=== PATIENT | female | born 1960 | race Caucasian/White ===

== ENCOUNTER → 2020-12-04 | Outpatient (CLI) | payer BC, OTHER ==
--- NOTE | 2020-12-04 09:37 | RAD ---
Thyroid ultrasound without comparison for thyroid nodule. TECHNIQUE AND FINDINGS: Real-time grayscale and color Doppler evaluation of the thyroid gland is perf ormed. Gland is heterogeneous in echotexture diffusely. The right lobe measures 5.6 x 1.4 x 1.4 cm in the left measures 5.1 x 1.8 x 1.7 cm. The isthmus is normal in thickness. There are multiple thyroid nodules bilaterally. On the right, there is a solid smoothly marginated heterogeneous but predominan tly isoechoic wider than tall nodule with punctate echogenic foci measuring 0.9 x 0.7 x 0.5 cm in the anterior inferior pole. This would constitute a TR 4 lesion. Deep within or extrinsic to the mid sub stance of the right thyroid lobe there is a 0.9 centimeter densely hypoechoic solid mass with lobulat ed margins and no internal echogenic foci. This may represent a TR 4 thyroid nodule, but also may be extrinsic to the thyroid gland itself, and could represent parathyroid pathology. On the left, there is a dominant cystic and solid nodule measuring 2.7 x 2.2 x 2.6 cm, with smooth margins, isoechoic ch aracter and wider than tall profile. No echogenic foci. This is a TR 2 lesion. Also on the left is 1. 1 x 0.6 x 0.9 cm solid hypoechoic nodule anterior to the dominant cystic and solid nodule. This nodul e is wider than tall and has smooth margins, with some peripheral rim calcifications. This is a TR 4 nodule that should be followed up according to guidelines as listed below. IMPRESSION: 1. Multinodular thyroid as described. Of particular concern is a 9 mm lobulated densely hypoechoic no dule on the right which is difficult to characterize as within or extrinsic to the thyroid gland. Thi s could reflect TR for thyroid nodule or parathyroid pathology. FNA is recommended despite its small size. ACR TI-RADS 2017 Composition - cystic or completely cystic: Benign, no further score - spongiform: Benign, no further score - mixed cystic and Solid: 1 point - solid or almost completely solid: 2 points Echogenicity - anechoic: 0 points - hyper- or isoechoic: 1 point - hypoechoic: 2 points - very hypoechoic: 3 points Shape (assess on transverse plane) - wider than tall: 0 points - taller than wide: 3 points Margin - smooth: 0 points - ill-defined: 0 points - lobulated/irregular: 2 points - extra-thyroidal extension: 3 points Echogenic Foci - none: 0 points - large comet tail artifact: 1 point - peripheral/rim calcifications: 2 points - punctate echogenic foci: 3 points TR1 - 0-1 points; Benign TR2 - 2 points; Not Suspicious TR3 - 3 points; Mildly Suspicious; Follow-up at 1,3,5 years for >= 1.5cm and FNA for >=2.5cm TR4 - 4-6 points; Moderately Suspicious; Follow-up at 1,2,3,5 years for >= 1.0cm and FNA for >= 1.5cm TR5 - 7+ points; Highly Suspicous; Follow=up at 1,2,3,4,5 years for >= 0.5cm and FNA for >= 1.0cm Notes: Only score and report the Four highest scoring nodules. Significant interval enlargement on fo llow-uup is defined as >20% and > 2mm in two dimensions or > 50% increase in volume. If there are mul tiple nodules, the two with the highest ACR TI-RADS score should be sampled, rather than the two larg est. Electronically signed by: Indra Gonzalez MD (12/04/2020 9:35 AM) [id number]
--- NOTE | 2020-12-04 16:51 | RAD ---
EXAM: ULTRASOUND-GUIDED THYROID FINE-NEEDLE ASPIRATION. HISTORY: Thyroid nodule. Ultrasound-guided biopsy is requested. FINDINGS: The procedure along with its risks and benefits were explained to the patient. They agreed to proceed. A timeout procedure was performed. Sonographic images of the thyroid gland were obtained. 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 The overlying skin was sterilely prepped and infiltrated with 1% lidocaine for local anesthesia. Unde r ultrasound guidance, 3 aspirates were obtained using 25-gauge needles. The first pass revealed dark , chocolate colored liquid. The target was much smaller thereafter. The samples collected were hand d elivered to pathology who determined them adequate for diagnosis. A sterile dressing was placed. Ther e were no immediate complications. IMPRESSION: 1. Successful ultrasound-guided fine-needle aspiration of the mid posterior right thyroid nodule. Electronically signed by: Erin Galloway MD (12/04/2020 4:49 PM) [id number]
--- NOTE | 2020-12-06 18:08 | PATHOLOGY ---
Note [facility] Accession Number: [id number] TESTS RESULT FLAG UNITS REF RANGE LAB Clinician Provided Cytology Information No. of containers..01 Other (Miscellaneous) Source: RT MID POST THYROID DIAGNOSIS: RT MID POST THYROID NEGATIVE FOR MALIGNANT CELLS. B[place]ESDA CATEGORY II. SPECIMEN CONSISTS OF BENIGN FOLLICULAR CELLS, HEMOSIDERIN-LADEN MACROPHAGES, COLLOID, AND BLOOD. THIS PATTERN IS CONSISTENT WITH AN ADENOMATOUS NODULE. THIS INTERPRETATION INCLUDES EVALUATION OF A CELL BLOCK. Pathologist ICD10: 02 E04.1 Signed out by: 02 Bull Michelle MD, Pathologist NPI- [id number] Performed by: Fanta Cunningham, Canary Raiser ([facility]) Gross description: 01 30ML, CLEAR RED, 2F 2AD 2HE /LCS 12/05/2020 1804 Local FLAG LEGEND: L-Low Normal,H-High Normal,LL-Alert Low,HH-Alert High <-Panic Low,>-Panic High,A-Abnormal,AA-Critical Abnormal Performed at: [facility] [address] [place] [address] Phani Medellin MD, [address] [facility] [address] [place] [address] Bull Michelle MD, Specimen Comment: A courtesy copy of this report has been sent to [phone], [phone] Specimen Comment: [id number] Specimen Comment: [id number] Specimen Comment: Report sent to Specimen Comment: Report sent to / DR SALAZAR Performed at: [address], [place] [id number] MD Phani Medellin MD Phone: [phone]
== END | disposition home or self-care (01) ==
LOC: US 08:29
PROVIDERS: ATTEND Otolaryngology
DX: E04.1 Nontoxic single thyroid nodule (principal)
CPT/HCPCS: 10005; 60300; 76536; 76942; 88173; 88305

== ENCOUNTER → 2021-11-27 | Outpatient (CLI) | payer BC, OTHER ==
--- NOTE | 2021-11-27 17:54 | KCIC ---
Thyroid ultrasound 11/27/2021 CLINICAL HISTORY: History of thyroid nodules. TECHNIQUE: A real-time ultrasound examination of the thyroid gland was performed. Multiple images wer e obtained. FINDINGS: Comparison study is dated 12/04/2020. The thyroid gland is enlarged. The right lobe of thyroid gland measures 4.9 x 1.9 x 1.3 cm in longitu dinal, transverse, and AP dimensions. The left lobe of thyroid gland measures 5.5 x 3.1 x 2.2 cm in s ize. The isthmus measures 3 mm in thickness. Multiple nodules of varying echogenicity are seen scattered throughout both lobes of the thyroid glan d consistent with a multinodular goiter. These measure 0.9 to 3.1 cm in greatest diameter. These have not significantly changed since the previous examination. No new nodule is seen. IMPRESSION: Findings consistent with a multinodular goiter, unchanged. Electronically signed by: Arnoldo Suarez MD (11/27/2021 5:52 PM) [id number]
== END ==
LOC: KCIC US 08:35
PROVIDERS: ATTEND Otolaryngology
DX: E04.9 Nontoxic goiter, unspecified (principal)
CPT/HCPCS: 76536